=== PATIENT | female | born 1950 | race Caucasian/White ===

== ENCOUNTER 2019-11-23 07:30 | Day surgery (SDC) | payer OTHER, MEDICAID ==
[2019-11-22 14:34] LABS: BASOPHILS 0.4 % (0-2); HEMATOCRIT 42.2 % (36.0-48.0); HEMOGLOBIN 13.8 g/dL (12-16); IMMATURE GRANULOCYTES 0.1 % (0-5); LYMPHOCYTES 23.8 % (15-50); MCH 27.8 pg (26.0-34.0); MCHC 32.7 g/dL (31.0-37.0); MCV 85.1 fL (80.0-100.0); MONOCYTES 11.6 % (2-11); NEUTROPHILS 61.1 % (40-80); PLATELET COUNT 299 10x3/uL (130-400); RBC 4.96 10x6/uL (4.00-5.40); RDW 13.9 % (11.5-14.5); WBC 8.6 10x3/uL (4.8-10.8)
[2019-11-22 14:44] LABS: CALCIUM 9.3 mg/dL (8.5-10.1); CARBON DIOXIDE 27.5 mmol/L (21.0-32.0); CREATININE - SERUM 0.9 mg/dL (0.6-1.3); POTASSIUM - SERUM 4.5 mmol/L (3.5-5.1)
[~2019-11-23] VITALS: Ht 172.7 cm; Wt 79.4 kg
--- NOTE | ~2019-11-23 | OP ---
PATIENT NAME: DELMA BRYANT MEDICAL RECORD: [id number] :48 LOCATION:D.OPS ADMISSION DATE: SURGEON: BETZY TYSON MD DATE OF OPERATION: 11/23/2019 PREOPERATIVE DIAGNOSES: 1. Ventral incisional hernia. 2. History of rectal cancer status post LAR. POSTOPERATIVE DIAGNOSES: 1. Ventral incisional hernia. 2. History of rectal cancer status post LAR. PROCEDURE: 1. Ventral hernia repair with no mesh. 2. Flexible sigmoidoscopy. SURGEON: Betzy Tyson MD REPORT OF PROCEDURE: The patient was placed in the left lateral decubitus position. A digital rectal exam was performed while the patient was asleep and there were no masses felt. An Olympus endoscope was advanced through the anus. We were able to pass through the sigmoid colon and up to the splenic flexure. The patient had a very poor prep with a large amount of stool present. I could not make out the lumen of the colon at the splenic flexure, so I discontinued any further advancement of the scope. As we did a pullback, there were no masses, lesions or diverticula seen, but again there was a very poor prep noted. I was not able to clearly visualize the patient's anastomosis from her previous LAR. I did not find any areas of stricturing. There were no masses or lesions present near the rectal region. A retroflex view showed no evidence of any internal hemorrhoids. At this point, the insufflation and the scope were removed. The patient was placed supine and the abdomen was prepped and draped in sterile fashion. A semicircular incision was made along the previous incision line on the right side of the umbilicus. Electrocautery was used to dissect through the subcutaneous tissue and around the hernia sac. The hernia sac was quite large with fatty contents within it. We were able to free up the hernia sac from the fascia and eventually placed the fatty contents back into the abdominal cavity. The hernia defect was about 1.5 cm in greatest diameter. We freed off the fascial edges and as I felt around in the undersurface of the fascia, I noted there was another small hernia just inferior to this near the umbilicus. This was less than a centimeter in greatest diameter. We freed up the fascia around this as well. We then reapproximated the fascial edges of the larger hernia defect transversely using interrupted 0 Prolenes times 5. The smaller defect was closed with a single [id number] 0 Prolene. There was good approximation of the tissue and there did not appear to be any tension. We then irrigated out the wound with normal saline and infused 10 mL of 0.25% Marcaine with epinephrine. The subcutaneous tissues were reapproximated with interrupted 3-0 Vicryl and the skin was closed with running subcutaneous 5-0 Monocryl. COMPLICATIONS: None. CONDITION: Stable. ANESTHESIA: General endotracheal and local. OPERATIVE REPORT [id number] DELMA BRYANT BLOOD LOSS: Minimal. TRANSINT:[id number] Voice Confirmation ID: [id number] DOCUMENT ID: [id number] BETZY TYSON MD CC: [id number] DICTATION DATE: 11/23/19 1035 CHIEF LIBRARIAN EXTENSION DEPARTMENT: 11/23/19 1149 [facility] 11/23/19 [facility] [address] [place] [address]
[~2019-11-23 07:30] MED LIST: ATARAX 25 MG TA25 MG PO; BACLOFEN10 MG PO; LEXAPRO10 MG PO; OMEPRAZOLE20 M1 PO
[2019-11-23] MEDS ORDERED: TESSALON PERLE100 MG PO (07:51)
[2019-11-23 07:54] VITALS: BP 119/62; Ht 172.7 cm; Wt 79.4 kg
--- NOTE | 2019-11-23 09:36 | NUR ---
PT LEFT LATERAL POSITION FOR COLONOSCOPY, REPOSITIONED SUPINE FOR VENTRAL HERNIA REPAIR
[2019-11-23] MEDS ORDERED: DILAUDID2 MG PO (10:30)
--- NOTE | 2019-11-23 16:49 | NUR ---
1640 BLADDER SCAN 202 CC. IVF AND PO FLUIDS CONTINUE. 3RD BAG OF LR HANGING
--- NOTE | 2019-11-23 17:58 | NUR ---
PATIENT AMBULATES TO BATHROOM AND VOIDS MODERATE AMOUNT INTO TOILET WITHOUT DIFFICULTY. RIGHT WRIST PIV DC'D WITH TIP INTACT. PATIENT DRESSING IN PERSONAL CLOTHING. 1811 DISCHARGE INSTRUCTIONS REVIEWED WITH PATIENT, DISCHARGED AMBULATORY WITH NURSE ESCORT TO PRIVATE VEHICLE WITH FRIEND
== END 2019-11-23 18:12 | disposition home or self-care (01) ==
LOC: D.OPS 07:30 → D.PAN 09:15 → D.OPS 18:12
PROVIDERS: Anesthesiology; ATTEND Surgery
DX: K43.2 Incisional hernia without obstruction or gangrene (principal); Z85.048 Personal history of other malignant neoplasm of rectum, rectosigmoid junction, and anus; Z72.0 Tobacco use

== ENCOUNTER → 2020-03-12 16:58 | Outpatient (CLI) | payer MEDICARE, MEDICAID ==
[2019-11-23 07:54] VITALS: BMI 26.6
[~2020-03-12 16:58] MED LIST changes: +DILAUDID2 MG PO; +TESSALON PERLE100 MG PO
== END | disposition home or self-care (01) ==
LOC: D.MRI 16:58
PROVIDERS: ATTEND Emergency Medicine
DX: M25.562 Pain in left knee (principal)

== ENCOUNTER 2020-06-05 23:56 | Emergency (ER) | payer MEDICARE, MEDICAID ==
[~2020-06-05] VITALS: Ht 165.1 cm; Wt 75.0 kg
[2020-06-05 23:57] VITALS: Ht 165.1 cm; Wt 75.0 kg
[2020-06-06] MEDS ORDERED: CYCLOBENZAPRINE10 MG PO (01:22)
[2020-06-06] MEDS ORDERED: ULTRAM50 MG PO (01:22)
[2020-06-06 02:00] VITALS: BP 130/82
== END 2020-06-06 02:00 | disposition home or self-care (01) ==
LOC: D.ER 23:56
DX: S22.42XA Multiple fractures of ribs, left side, initial encounter for closed fracture (principal); X58.XXXA Exposure to other specified factors, initial encounter; K21.9 Gastro-esophageal reflux disease without esophagitis